=== PATIENT | female | born 1965 | race Hispanic/Latino ===

== ENCOUNTER 2023-12-26 00:14 | Inpatient (IN) | payer OTHER ==
[~2023-12-26] VITALS: Ht 154.9 cm; Wt 80.1 kg
[2023-12-26] VITALS (10 sets, daily range): BP systolic 153; BP diastolic 52; PULSE 60–78; RESP 18–24; O2SAT 93–97
[2023-12-26] MEDS ORDERED: IPRATROPIUM/ALBUTEROL SULFATE 3 ML SOLUTION IH STA (00:33)
[2023-12-26 00:53] LABS: BASOPHILS # (AUTO) 0.05 K/uL (0.00-0.20); BASOPHILS % (AUTO) 0.6 % (0.0-5.0); EOSINOPHILS # (AUTO) 0.19 K/uL (0.00-0.70); EOSINOPHILS % (AUTO) 2.4 % (0.0-8.0); HEMATOCRIT 41.6 % (36-48); IMMATURE GRANULOCYTE ABSOLUTE 0.01 K/uL (0-1); LYMPHOCYTES % (AUTO) 37.6 % (21.0-51.0); MEAN CORPUSCULAR HEMOGLOBIN 30.8 pg (27.0-33.0); MEAN CORPUSCULAR HGB CONC 32.5 g/dL (32.0-36.0); MEAN CORPUSCULAR VOLUME 94.8 fL (79-99); MONOCYTES # (AUTO) 0.6 K/uL (0.1-1.0); MONOCYTES % (AUTO) 7.3 % (3.0-13.0); NEUTROPHILS # (AUTO) 4.1 K/uL (1.8-7.7); PLATELET COUNT (AUTO) 143 K/uL (130-400); RED BLOOD CELL COUNT(AUTO) 4.39 MIL/uL (4.00-5.50); RED CELL DISTRIBUTION WIDTH 12.8 % (11.0-15.5); WHITE BLOOD COUNT (AUTO) 7.9 K/uL (4.8-10.8)
[2023-12-26 00:58] LABS: CREATININE 0.6 mg/dL (0.5-1.0); POTASSIUM 3.8 mmol/L (3.5-5.1)
[2023-12-26 01:03] LABS: ALBUMIN 3.3 g/dL (3.5-5.0); BILIRUBIN,TOTAL 0.2 mg/dL (0.2-1.0); MAGNESIUM 2.2 mg/dL (1.80-2.40); TOTAL PROTEIN, SERUM 6.9 g/dL (6.0-8.3)
[2023-12-26 01:14] LABS: SARS-CoV-2, RNA, NAAT NEGATIVE SARS CoV-2 (NEGATIVE)
[2023-12-26 01:17] LABS: INFLUENZA TYPE A Negative For Type A (NEGATIVE); INFLUENZA TYPE B Negative For Type B (NEGATIVE)
[2023-12-26] MEDS: SOLU-MEDROL 125MG VIAL IVP ONE (01:17)
[2023-12-26] MEDS: IPRATROPIUM/ALBUTEROL SULFATE 3 ML SOLUTION IH ONE ×2 (01:24→01:40)
[2023-12-26 01:25] LABS: B-TYPE NATRIURETIC PEPTIDE 30 pg/mL (0-100)
[2023-12-26 01:26] LABS: RAPID GROUP A STREP positive (NEGATIVE)
[2023-12-26] MEDS ORDERED: AMOXICILLIN 500 MG CAPSULE PO ONE (03:00)
[2023-12-26] MEDS: CEFTRIAXONE 1G VIAL IVPB ONE (03:20)
[2023-12-26] MEDS ORDERED: POTASSIUM CHLORIDE 20MEQ/100ML 100 ML IV PRN (05:00)
[2023-12-26] MEDS ORDERED: GUAIFENESIN-DM 200/20 MG 10 ML PO PRN (05:00)
[2023-12-26] MEDS ORDERED: CEFTRIAXONE 1G VIAL 1 GM in 0.9%NACL 50ML 50 ML IV SCH (05:00)
[2023-12-26] MEDS ORDERED: MAGNESIUM 2GM PREMIX 50ML 50 ML IV PRN (05:00)
[2023-12-26] MEDS ORDERED: ACETAMINOPHEN 325 MG TAB PO PRN (05:00)
[2023-12-26] MEDS ORDERED: ONDANSETRON 4MG INJ IV PRN (05:00)
[2023-12-26] MEDS: CEFTRIAXONE 1G VIAL IVPB SCH (05:00)
[2023-12-26] MEDS ORDERED: POTASSIUM CHLORIDE 10% ELIXIR 20 MEQ/15 ML UDCUP PO PRN (05:00)
[2023-12-26] MEDS: IPRATROPIUM/ALBUTEROL SULFATE 3 ML SOLUTION IH SCH (07:00)
[2023-12-26 07:05] LABS: BASOPHILS # (AUTO) 0.02 K/uL (0.00-0.20); BASOPHILS % (AUTO) 0.3 % (0.0-5.0); HEMATOCRIT 39.7 % (36-48); IMMATURE GRANULOCYTE ABSOLUTE 0.03 K/uL (0-1); LYMPHOCYTES # (AUTO) 0.5 K/uL (1.0-4.8); LYMPHOCYTES % (AUTO) 7.2 % (21.0-51.0); MEAN CORPUSCULAR VOLUME 93.9 fL (79-99); MONOCYTES % (AUTO) 0.6 % (3.0-13.0); NEUTROPHILS # (AUTO) 6.1 K/uL (1.8-7.7); NEUTROPHILS % (AUTO) 91.5 % (40.0-77.0); PLATELET COUNT (AUTO) 133 K/uL (130-400); RED BLOOD CELL COUNT(AUTO) 4.23 MIL/uL (4.00-5.50); WHITE BLOOD COUNT (AUTO) 6.7 K/uL (4.8-10.8)
[2023-12-26 07:21] LABS: ALBUMIN 3.2 g/dL (3.5-5.0); BILIRUBIN,TOTAL 0.4 mg/dL (0.2-1.0); CREATININE 0.6 mg/dL (0.5-1.0); POTASSIUM 3.5 mmol/L (3.5-5.1); TOTAL PROTEIN, SERUM 6.9 g/dL (6.0-8.3)
[2023-12-26] MEDS: FAMOTIDINE 20MG TAB PO SCH (07:48)
[2023-12-26] MEDS: SOLU-MEDROL 40MG VIAL IVP SCH (07:49)
[2023-12-26] MEDS ORDERED: CHLORDIAZEPOXIDE HCL 25 MG CAP PO PRN (14:00)
[2023-12-26] MEDS: LEVOFLOXACIN 500 MG/D5W 100 ML 100 ML IV SCH (14:20)
[2023-12-26] MEDS: THIAMINE HCL 100 MG/ML 2ML VIAL IVP ONE (14:21)
[2023-12-26 14:37] LABS: APPEARANCE,URINE CLEAR (CLEAR); BILIRUBIN,URINE NEGATIVE (NEGATIVE); COLOR,URINE LIGHT-YELLOW (YELLOW); GLUCOSE, URINE (UA) 500 mg/dL (NEGATIVE); KETONES,URINE NEGATIVE (NEGATIVE); LEUKOCYTE ESTERASE ,URINE 75 Leu/uL (NEGATIVE); NITRATE,URINE NEGATIVE (NEGATIVE); PH,URINE 5.5 (5.0-8.0); PROTEIN,URINE NEGATIVE (NEGATIVE); UROBILINOGEN,URINE 0.2 mg/dL (0.2-1.0)
[2023-12-26 14:38] LABS: ADD UA MICROSCOPIC YES
[2023-12-26 14:44] LABS: RBC,URINE 0-1 /HPF (0-1); SQUAMOUS EPITHELIAL CELL,UR RARE /HPF (0-2); WBC,URINE 51-100 /HPF (0-1)
[2023-12-26 14:48] LABS: AMPHET/METH SCREEN,URINE NEGATIVE (NEGATIVE); BARBITURATE SCREEN, URINE NEGATIVE (NEGATIVE); BENZODIAZEPINES SCREEN,URINE NEGATIVE (NEGATIVE); CANNABINOID SCREEN,URINE NEGATIVE (NEGATIVE); COCAINE SCREEN,URINE POSITIVE (NEGATIVE); OPIATE SCREEN,URINE NEGATIVE (NEGATIVE); PHENCYCLIDINE SCREEN,URINE NEGATIVE (NEGATIVE)
[2023-12-26] MEDS: ERGOCALCIFEROL (VITAMIN D2) 50,000 UNIT CAPSULE PO ONE (16:02)
[2023-12-26] MEDS: KCL 20 MEQ ERTAB PO PRN (20:13)
[2023-12-26] MEDS ORDERED: FAMOTIDINE 20MG TAB PO SCH (21:00)
[2023-12-27] VITALS (14 sets, daily range): BP systolic 118–153; BP diastolic 51–69; PULSE 58–78; RESP 18–20; O2SAT 96–100
[2023-12-27] MEDS: NICOTINE 21 MG/ 24 HR PATCH TD ONE (00:02)
[2023-12-27] MEDS: DOCUSATE SODIUM 100 MG CAP PO ONE (00:02)
[2023-12-27 04:42] LABS: BASOPHILS # (AUTO) 0.01 K/uL (0.00-0.20); BASOPHILS % (AUTO) 0.1 % (0.0-5.0); HEMATOCRIT 39.8 % (36-48); IMMATURE GRANULOCYTE ABSOLUTE 0.06 K/uL (0-1); LYMPHOCYTES # (AUTO) 0.9 K/uL (1.0-4.8); LYMPHOCYTES % (AUTO) 7.5 % (21.0-51.0); MEAN CORPUSCULAR HEMOGLOBIN 31.1 pg (27.0-33.0); MEAN CORPUSCULAR HGB CONC 32.7 g/dL (32.0-36.0); MEAN CORPUSCULAR VOLUME 95.2 fL (79-99); MONOCYTES # (AUTO) 0.4 K/uL (0.1-1.0); MONOCYTES % (AUTO) 3.2 % (3.0-13.0); NEUTROPHILS # (AUTO) 11.1 K/uL (1.8-7.7); NEUTROPHILS % (AUTO) 88.7 % (40.0-77.0); PLATELET COUNT (AUTO) 128 K/uL (130-400); RED BLOOD CELL COUNT(AUTO) 4.18 MIL/uL (4.00-5.50); RED CELL DISTRIBUTION WIDTH 13.2 % (11.0-15.5); WHITE BLOOD COUNT (AUTO) 12.5 K/uL (4.8-10.8)
[2023-12-27 04:57] LABS: HEMOGLOBIN A1C 5.8 % (4.0-6.0)
[2023-12-27 05:26] LABS: BILIRUBIN,TOTAL 0.2 mg/dL (0.2-1.0); CREATININE 0.7 mg/dL (0.5-1.0); POTASSIUM 4.4 mmol/L (3.5-5.1); THYROID STIMULATING HORMONE 0.53 uIU/mL (0.36-3.74); TOTAL PROTEIN, SERUM 6.4 g/dL (6.0-8.3)
[2023-12-27 08:50] LABS: HIV 1&2 ANTIBODY Non-Reactive (Negative); HIV-1 p24 Antigen Non-Reactive (Negative)
[2023-12-27] MEDS: Vitamin B Complex/Vit C/Folic Acid PO SCH (08:50)
[2023-12-27] MEDS: THIAMINE HCL 100 MG TABLET PO SCH (08:50)
[2023-12-27] MEDS: MULTIVITAMIN TABLET PO SCH (08:50)
[2023-12-27] MEDS: ACETAMINOPHEN 325 MG TAB PO PRN (14:37)
[2023-12-27 16:21] LABS: ABG BASE EXCESS -2.9 mmol/L (-2.0-3.0); ABG OXYGEN SATURATION 95.8 % (95.0-99.0); ABG PCO2 34 mmHg (32-45); ABG PH 7.405 (7.35-7.450); DEVICE COMMENT CATHY RN RB; PO2, ARTERIAL BG 78.7 mmHg (83.0-108.0); VENT MODE, BG RA (ROOM AIR)
[2023-12-27] MEDS: LACTULOSE 20 GM/30 ML UDCUP PO SCH (20:04)
[2023-12-28] VITALS (9 sets, daily range): BP systolic 74–147; BP diastolic 73–86; PULSE 59–75; RESP 16–20; O2SAT 99–100
[2023-12-28 04:50] LABS: HEMATOCRIT 38.8 % (36-48); MEAN CORPUSCULAR HEMOGLOBIN 30.7 pg (27.0-33.0); MEAN CORPUSCULAR HGB CONC 31.7 g/dL (32.0-36.0); MEAN CORPUSCULAR VOLUME 96.8 fL (79-99); RED BLOOD CELL COUNT(AUTO) 4.01 MIL/uL (4.00-5.50); RED CELL DISTRIBUTION WIDTH 13.5 % (11.0-15.5); WHITE BLOOD COUNT (AUTO) 10.3 K/uL (4.8-10.8)
[2023-12-28 04:58] LABS: CREATININE 0.7 mg/dL (0.5-1.0); POTASSIUM 3.7 mmol/L (3.5-5.1)
[2023-12-28] MEDS: PREDNISONE 20 MG TABLET PO SCH (09:39)
[2023-12-28] MEDS ORDERED: LEVO-70 PO (10:58)
[2023-12-28] MEDS ORDERED: PRED20TA3 PO (11:01)
== END 2023-12-28 13:00 | disposition home or self-care (01) | DRG 189 ==
LOC: EDH 00:14 → EDHIP 00:15 → UNDOADMOB 00:15 → OBSVTOIN 04:32 → EDHIP 04:32 → 4CH 22:45
PROVIDERS: ADMIT Internal Medicine; ATTEND Internal Medicine
DX: J96.01 Acute respiratory failure with hypoxia (principal); J44.1 Chronic obstructive pulmonary disease with (acute) exacerbation; J44.0 Chronic obstructive pulmonary disease with (acute) lower respiratory infection; Z20.822 Contact with and (suspected) exposure to COVID-19; F10.20 Alcohol dependence, uncomplicated; F14.10 Cocaine abuse, uncomplicated; F17.210 Nicotine dependence, cigarettes, uncomplicated; I10 Essential (primary) hypertension; J20.9 Acute bronchitis, unspecified; Z79.899 Other long term (current) drug therapy
CPT/HCPCS: 36415; 36600; 71045; 80048; 80053; 80305; 81001; 82803; 83036; 83735; 83880; 84145; 84443; 84484; 85025; 85027; 85378; 86701; 87086; 87390; 87635; 87804; 87880; 93005; 94640; 94664; G0378; J0696; J1956; J2919; J3411